=== PATIENT | female | born 1950 | race Caucasian/White ===

== ENCOUNTER → 2019-06-02 | Outpatient (CLI) | payer MEDICARE, OTHER ==
[~2019-06-02] MED LIST: CALC600T4 PO; CHOL100013 PO; CRESTOR20 MG PO; TAMO20TA PO
--- NOTE | 2019-06-02 16:37 | RAD ---
EXAM: CT Chest without IV contrast INDICATION: History of breast cancer with metastases TECHNIQUE: Multi-detector row CT images were acquired from the thoracic inlet through the upper abdomen without the use of IV contrast. Sagittal and coronal images were acquired from the transaxial data. All CT scans performed at this facility utilize dose optimization techniques as appropriate to the exam, including the following: Automated exposure control and adjustment of the mA and/or KV according to patient size (this includes techniques or standardized protocols for targeted exams where dose is indication/reason for exam). COMPARISON: None currently available FINDINGS: The absence of IV contrast limits evaluation of soft tissue pathology. CARDIOVASCULAR: Unremarkable MEDIASTINUM & KADI: Nonspecific fullness in the distal thoracic esophagus is present. LUNGS: Subpleural reticular densities in the bilateral upper lobes anteriorly are present, compatible with post treatment changes. No suspicious mass, nodule or parenchymal consolidation is evident. PLEURAL SPACE: Small left pleural effusion. No pneumothorax. OSSEOUS & SOFT TISSUE: Postsurgical changes are present in both breasts as well as in the right axilla. ABDOMEN: The visualized portions of the upper abdomen reveal 1.3 cm nodular fullness to the left adrenal gland measuring 32 Hounsfield units. IMPRESSION: 1. Postsurgical changes in both breasts and in the right axilla with subpleural reticular densities in the bilateral upper lobes of the lungs suggestive of post treatment fibrosis. A trace left pleural effusion of uncertain significance. Differential considerations include posttreatment changes, atypical infection, and malignant pleural effusion. No dominant nodules in the lungs to suggest pulmonary metastatic disease. 2. Nonspecific fullness in the distal thoracic esophagus is present. A PET scan could be considered in further evaluation if residual viable metastatic disease is of concern. Electronically signed by: Soila Naqvi MD (06/02/2019 4:34 PM) [facility]
--- NOTE | 2019-06-02 20:14 | PN ---
DATE: 06/02/2019 REFERRING DOCTOR: Lilibeth Rivers MD DIAGNOSIS: Stage 2 (T1N1M0) adenocarcinoma of the right breast diagnosed in 1991, followed by stage 1 (T1N0M0) adenocarcinoma of the left breast diagnosed in 2001. She had an isolated supraclavicular lymph node recurrence in 02/2007 confirmed by biopsy. Following this, in 2012, she had biopsy-proven isolated paraesophageal lymph node recurrence. She has been on sequential hormonal therapy and now has isolated disease progression at that site. No disease elsewhere was seen. She received salvage radiation to that site, receiving 50 Gy here, completed on 05/08/2019. She now returns 1 month following treatment. ICD-10: C50.912, C50.911, C77.0, C77.1. Since completing treatment, her transient sore throat has resolved. Initially, she had difficult time swallowing solid foods and now has no limitations. Her energy level is better. She now has no problems whatsoever. She is on ongoing tamoxifen, which is well tolerated. She is scheduled to see Dr. Lilibeth Rivers here in 06/20/2019. PHYSICAL EXAMINATION: GENERAL: Revealed a robust pleasant woman in no acute distress. Weight 166 pounds. VITAL SIGNS: Blood pressure 130/72, pulse oximetry on room air 96%. LYMPH NODES: She had no palpable cervical or supraclavicular adenopathy. LUNGS: Clear. HEART: Regular rhythm. ABDOMEN: Unremarkable. LABORATORY DATA: CT scan obtained today compared to previous CT scan at from 01/06/2019 revealed marginal decrease in size in the paraesophageal mass, now measuring on my measurement 3.4 x 2.1 x 2.9 cm, previously measured 3.7 x 2.5 x 4.0 cm. In summary, my impression is that of isolated paraesophageal monica recurrence of adenocarcinoma of the breast. She has done well with involved site radiation therapy. She shows an early reduction in the size of her disease. We will schedule her for followup here in [address] scan of the chest. Thank you again for allowing us to participate in her care and followup. VENESSA MYERS MD DR: JESSICA/radhames JOB#: [id number] / [id number] STEPHANIE Lange
== END | disposition home or self-care (01) ==
LOC: CT 11:09
PROVIDERS: ATTEND Radiology Radiation Oncology
DX: C78.89 Secondary malignant neoplasm of other digestive organs (principal); J90 Pleural effusion, not elsewhere classified; Z85.3 Personal history of malignant neoplasm of breast
CPT/HCPCS: 71250